=== PATIENT | male | born 1995 | race African-American/Black ===

== ENCOUNTER 2022-01-07 15:15 | Emergency (ER) | payer SELFPAY ==
[~2022-01-07] VITALS: Ht 177.8 cm; Wt 109.0 kg
[2022-01-07 16:08] LABS: BASOPHILS % 0.3 % (0.0-2.0); EOSINOPHILS % 2.5 % (0.0-5.0); HEMATOCRIT. 43.7 % (42.0-52.0); HEMOGLOBIN. 14.6 g/dL (14.0-18.0); LYMPHOCYTES % 27.6 % (20.0-50.0); MEAN CORPUSCULAR HEMOGLOBIN 28.1 pg (28.0-32.0); MEAN CORPUSCULAR VOLUME 84.3 fL (80.0-94.0); MEAN PLATELET VOLUME 8.3 fl (7.4-10.4); MONOCYTES % 6.3 % (2.0-8.0); NEUTROPHILS % 63.3 % (40.0-76.0); PLATELET 190 x1000/uL (130-400); RED BLOOD CELL COUNT 5.19 mill/uL (4.7-6.1); RED CELL DISTRIBUTION WIDTH 13.5 % (11.6-14.6)
[2022-01-07 16:18] LABS: CHLORIDE 109 mEq/L (98-107)
[2022-01-07 18:28] VITALS: BP 122/77
== END 2022-01-07 18:27 | disposition home or self-care (01) ==
LOC: ER 15:15
DX: D17.22 Benign lipomatous neoplasm of skin and subcutaneous tissue of left arm (principal)
CPT/HCPCS: 36415; 80053; 85025; 99283

== ENCOUNTER 2024-05-12 19:23 | Emergency (ER) | payer SELFPAY ==
[~2024-05-12] VITALS: Ht 177.8 cm; Wt 105.0 kg
[2024-05-12 19:26] VITALS: O2SAT 100
[2024-05-12 19:45] VITALS: BP 139/86; PULSE 92; RESP 18; TEMP 98; O2SAT 100
[2024-05-12] MEDS: IBUPROFEN 600MG TABLET PO STA (22:07)
[2024-05-13] MEDS ORDERED: IMIT25 PO (00:15)
== END 2024-05-13 00:30 | disposition home or self-care (01) ==
LOC: ER 19:23
DX: R51.9 Headache, unspecified (principal); Z98.890 Other specified postprocedural states
CPT/HCPCS: 99284

== ENCOUNTER 2024-05-27 22:51 | Emergency (ER) | payer SELFPAY ==
[~2024-05-27] VITALS: Ht 177.8 cm; Wt 100.0 kg
[~2024-05-27 22:51] MED LIST: IMIT25 PO
[2024-05-27 23:07] VITALS: O2SAT 100
[2024-05-28 00:31] LABS: BASOPHILS % 0.5 % (0.0-2.0); EOSINOPHILS % 2.3 % (0.0-5.0); HEMATOCRIT. 42.4 % (42.0-52.0); HEMOGLOBIN. 14.1 g/dL (14.0-18.0); LYMPHOCYTES % 27.1 % (20.0-50.0); MEAN CORPUSCULAR HEMOGLOBIN 28.6 pg (28.0-32.0); MEAN CORPUSCULAR HGB CONC 33.3 g/dL (31.0-37.0); MEAN CORPUSCULAR VOLUME 85.9 fL (80.0-94.0); MEAN PLATELET VOLUME 7.9 fl (7.4-10.4); NEUTROPHILS % 62.1 % (40.0-76.0); PLATELET 192 x1000/uL (130-400); RED BLOOD CELL COUNT 4.94 mill/uL (4.7-6.1); RED CELL DISTRIBUTION WIDTH 13.9 % (11.6-14.6); WHITE BLOOD COUNT 7.2 x1000/uL (4.5-11.0)
[2024-05-28 00:39] LABS: CHLORIDE 105 mEq/L (98-107); POTASSIUM 3.8 mEq/L (3.5-5.1); SODIUM 137 mEq/L (136-145)
[2024-05-28 00:40] LABS: CARBON DIOXIDE 27 mEq/L (21-32)
[2024-05-28 00:41] LABS: CALCIUM 10.3 mg/dL (8.7-10.4)
[2024-05-28 00:45] LABS: CREATININE 1.3 mg/dL (0.6-1.3); GLUCOSE 94 mg/dL (70-105); UREA NITROGEN BLOOD 12 mg/dL (9-23)
[2024-05-28 00:46] LABS: TROPONIN I HIGH SENSITIVITY 20 ng/L (3.0-53)
[2024-05-28 02:39] VITALS: BP 149/94; PULSE 77; RESP 18; TEMP 36.66960; O2SAT 100
== END 2024-05-28 02:50 | disposition home or self-care (01) ==
LOC: ER 22:51
DX: R07.89 Other chest pain (principal); J45.909 Unspecified asthma, uncomplicated; Z68.31 Body mass index [BMI] 31.0-31.9, adult; Z98.890 Other specified postprocedural states
CPT/HCPCS: 36415; 71045; 80048; 84484; 85025; 93005; 99285

== ENCOUNTER 2024-07-23 23:03 | Emergency (ER) | payer SELFPAY ==
[~2024-07-23] VITALS: Ht 179.1 cm; Wt 131.7 kg
[2024-07-23 23:09] VITALS: O2SAT 100
[2024-07-23 23:24] VITALS: BP 133/86; PULSE 86; O2SAT 99
[2024-07-23] MEDS ORDERED: BO1 TP (23:40)
[2024-07-23] MEDS ORDERED: IBUP-2029 MT (23:40)
[2024-07-24] MEDS: LIDOCAINE HCL/PF 1% 10 MG/ML 5ML VIAL INFIL ONE (00:21)
[2024-07-24] MEDS: IBUPROFEN 600MG TABLET PO ONE (00:24)
[2024-07-24] MEDS: BACITRACIN ZINC OINT UDPKT TOP ONE (00:25)
[2024-07-24] MEDS: TETANUS, DIPHTHERIA, PERTUSSIS VAC/PF 0.5ML (>10YR OLD) IM ONE (00:25)
== END 2024-07-24 01:30 | disposition home or self-care (01) ==
LOC: ER 23:03
DX: S61.211A Laceration without foreign body of left index finger without damage to nail, initial encounter (principal); J45.909 Unspecified asthma, uncomplicated; W26.8XXA Contact with other sharp object(s), not elsewhere classified, initial encounter; Y93.89 Activity, other specified; Y92.89 Other specified places as the place of occurrence of the external cause; Y99.8 Other external cause status
CPT/HCPCS: 99283; 12002; 90715; 90471; J3490; 99284

== ENCOUNTER 2024-08-01 17:39 | Emergency (ER) | payer SELFPAY ==
[~2024-08-01] VITALS: Ht 177.8 cm; Wt 130.0 kg
[~2024-08-01 17:39] MED LIST changes: +BO1 TP; +IBUP-2029 MT
[2024-08-01 17:42] VITALS: O2SAT 99
[2024-08-01 17:49] VITALS: BP 145/98; PULSE 86; RESP 16; TEMP 98.6; O2SAT 99
== END 2024-08-01 20:26 | disposition home or self-care (01) ==
LOC: ER 17:39
DX: S61.412D Laceration without foreign body of left hand, subsequent encounter (principal); J45.909 Unspecified asthma, uncomplicated; Z98.890 Other specified postprocedural states; X58.XXXD Exposure to other specified factors, subsequent encounter
CPT/HCPCS: 99281

== ENCOUNTER 2024-09-30 10:47 | Emergency (ER) | payer SELFPAY ==
[~2024-09-30] VITALS: Ht 177.8 cm; Wt 124.0 kg
[2024-09-30 10:50] VITALS: O2SAT 100
[2024-09-30 11:05] VITALS: BP 156/86; PULSE 76; RESP 18; TEMP 36.9; O2SAT 99
[2024-09-30] MEDS: MAGNESIUM/ALUMINUM HYDROXIDE/SIMETHICONE 30ML UDC PO ONE (12:01)
[2024-09-30] MEDS: FAMOTIDINE 20MG TABLET PO ONE (12:01)
[2024-09-30 12:30] LABS: HEMATOCRIT 40.5 % (42.0-52.0); HEMOGLOBIN 13.1 g/dL (14.0-18.0); MEAN CORPUSCULAR HEMOGLOBIN 27.3 pg (28.0-32.0); MEAN CORPUSCULAR HGB CONC 32.5 g/dL (31.0-37.0); PLATELET 213 x1000/uL (130-400); RED BLOOD CELL COUNT 4.82 mill/uL (4.7-6.1); RED CELL DISTRIBUTION WIDTH 14.1 % (11.6-14.6); WHITE BLOOD COUNT 6.5 x1000/uL (4.5-11.0)
[2024-09-30 12:55] LABS: CHLORIDE 107 mEq/L (98-107); POTASSIUM 3.8 mEq/L (3.5-5.1); SODIUM 141 mEq/L (136-145)
[2024-09-30 12:56] LABS: CALCIUM 9.6 mg/dL (8.7-10.4); CARBON DIOXIDE 26 mEq/L (21-32)
[2024-09-30 13:01] LABS: CREATININE 1.2 mg/dL (0.6-1.3); GLUCOSE 100 mg/dL (70-105); UREA NITROGEN BLOOD 16 mg/dL (9-23)
[2024-09-30 13:02] LABS: TROPONIN I HIGH SENSITIVITY 5 ng/L (3.0-53)
== END 2024-09-30 13:47 | disposition home or self-care (01) ==
LOC: ER 10:47
DX: R07.89 Other chest pain (principal); J45.909 Unspecified asthma, uncomplicated; Z98.890 Other specified postprocedural states
CPT/HCPCS: 36415; 71045; 80048; 84484; 85027; 93005; 99285

== ENCOUNTER 2025-01-31 04:22 | Emergency (ER) | payer SELFPAY ==
[~2025-01-31] VITALS: Ht 177.8 cm; Wt 118.0 kg
[2025-01-31 04:29] VITALS: O2SAT 99
[2025-01-31 06:59] LABS: BASOPHILS % 0.4 % (0.0-2.0); EOSINOPHILS % 2.1 % (0.0-5.0); HEMATOCRIT. 41.2 % (42.0-52.0); HEMOGLOBIN. 13.6 g/dL (14.0-18.0); LYMPHOCYTES % 27.9 % (20.0-50.0); MEAN CORPUSCULAR HEMOGLOBIN 27.7 pg (28.0-32.0); MEAN CORPUSCULAR HGB CONC 32.9 g/dL (31.0-37.0); MEAN CORPUSCULAR VOLUME 84.2 fL (80.0-94.0); MEAN PLATELET VOLUME 8.5 fl (7.4-10.4); MONOCYTES % 7.1 % (2.0-8.0); NEUTROPHILS % 62.5 % (40.0-76.0); PLATELET 217 x1000/uL (130-400); RED CELL DISTRIBUTION WIDTH 14.3 % (11.6-14.6); WHITE BLOOD COUNT 6.2 x1000/uL (4.5-11.0)
[2025-01-31 07:01] LABS: CHLORIDE 104 mEq/L (98-107); POTASSIUM 3.8 mEq/L (3.5-5.1); SODIUM 139 mEq/L (136-145)
[2025-01-31 07:02] LABS: CALCIUM 10.2 mg/dL (8.7-10.4); CARBON DIOXIDE 29 mEq/L (21-32)
[2025-01-31 07:07] LABS: CREATININE 1.3 mg/dL (0.6-1.3); GLUCOSE 85 mg/dL (70-105); UREA NITROGEN BLOOD 16 mg/dL (9-23)
[2025-01-31 07:08] LABS: TROPONIN I HIGH SENSITIVITY 6 ng/L (3.0-53)
[2025-01-31 07:17] LABS: PROTHROMBIN TIME 11.2 sec (9.6-11.0)
[2025-01-31] MEDS ORDERED: PHEN51CR24 TP (07:28)
[2025-01-31 07:44] VITALS: BP 144/91; PULSE 63; RESP 19; TEMP 37; O2SAT 99
== END 2025-01-31 07:45 | disposition home or self-care (01) ==
LOC: ER 05:18
DX: R07.89 Other chest pain (principal); R20.2 Paresthesia of skin; Z79.899 Other long term (current) drug therapy
CPT/HCPCS: 36415; 71045; 80048; 84484; 85025; 93005; 99285

== ENCOUNTER 2025-03-23 09:36 | Emergency (ER) | payer MEDICAID ==
[~2025-03-23] VITALS: Ht 177.8 cm; Wt 104.0 kg
[~2025-03-23 09:36] MED LIST changes: +PHEN51CR24 TP
[2025-03-23 09:48] VITALS: O2SAT 98
[2025-03-23 10:06] LABS: BASOPHILS % 0.6 % (0.0-2.0); EOSINOPHILS % 2.7 % (0.0-5.0); HEMATOCRIT. 40.4 % (42.0-52.0); HEMOGLOBIN. 13.5 g/dL (14.0-18.0); LYMPHOCYTES % 34.5 % (20.0-50.0); MEAN PLATELET VOLUME 8.3 fl (7.4-10.4); MONOCYTES % 8.0 % (2.0-8.0); NEUTROPHILS % 54.2 % (40.0-76.0); PLATELET 175 x1000/uL (130-400); RED BLOOD CELL COUNT 4.77 mill/uL (4.7-6.1); RED CELL DISTRIBUTION WIDTH 13.8 % (11.6-14.6)
[2025-03-23 10:27] LABS: CREATININE 1.2 mg/dL (0.6-1.3)
[2025-03-23 10:28] LABS: UREA NITROGEN BLOOD 17 mg/dL (9-23)
[2025-03-23 10:29] LABS: TROPONIN I HIGH SENSITIVITY 7 ng/L (3.0-53)
[2025-03-23 10:30] LABS: ASPARTATE AMINOTRANSFERASE 65 IU/L (<34); BILIRUBIN DIRECT 0.1 mg/dL (<=3.0); BILIRUBIN TOTAL 0.5 mg/dL (0.1-1.0); PROTEIN TOTAL 7.1 g/dL (6.0-8.3)
[2025-03-23] MEDS ORDERED: IBUP-2029 MT (11:46)
[2025-03-23 11:52] VITALS: BP 168/81; PULSE 83; RESP 15; TEMP 36.8; O2SAT 100
== END 2025-03-23 12:00 | disposition home or self-care (01) ==
LOC: ER 09:36
DX: M94.0 Chondrocostal junction syndrome [Tietze] (principal); R07.89 Other chest pain; F19.90 Other psychoactive substance use, unspecified, uncomplicated; Z79.899 Other long term (current) drug therapy
CPT/HCPCS: 36415; 71045; 80048; 80076; 84484; 85025; 93005; 99285

== ENCOUNTER 2025-06-17 13:15 | Emergency (ER) | payer SELFPAY ==
[~2025-06-17] VITALS: Ht 182.9 cm; Wt 114.0 kg
[~2025-06-17 13:15] MED LIST changes: +IBUP-1455 MT; -IBUP-2029 MT
[2025-06-17 13:26] VITALS: O2SAT 100
[2025-06-17] MEDS ORDERED: HYDR30CR80 TP (14:15)
[2025-06-17 14:40] VITALS: BP 169/89; PULSE 73; RESP 14; TEMP 36.9; O2SAT 100
== END 2025-06-17 14:45 | disposition home or self-care (01) ==
LOC: ER 13:15
DX: K64.9 Unspecified hemorrhoids (principal); Z87.19 Personal history of other diseases of the digestive system; Z79.899 Other long term (current) drug therapy
CPT/HCPCS: 99283